=== PATIENT | male | born 1995 | race Caucasian/White ===

== ENCOUNTER 2022-10-05 05:07 | Observation (INO) | payer OTHER ==
[2022-10-05] MEDS ORDERED: fentaNYL 50 MCG/ML SDV IVPUSH ONE ×2 (05:13→06:46)
[2022-10-05 05:36] LABS: BASOPHILS ABSOLUTE AUTO 0.1 K/uL (0.0-0.1); BASOPHILS PERCENT AUTO 0.9 % (0.0-1.5); BLOOD UREA NITROGEN,BUN 8 mg/dL (7.0-18.0); CARBON DIOXIDE,CO2 27.8 mmol/L (21.0-32.0); CHLORIDE,CL 102 mmol/L (98-107); CREATININE 1.1 mg/dL (0.8-1.3); EOSINOPHILS ABSOLUTE AUTO 0.1 K/uL (0.0-0.7); EOSINOPHILS PERCENT AUTO 0.8 % (0.0-7.0); GLUCOSE RANDOM 119 mg/dL (74-106); HEMATOCRIT 47.2 % (38.0-50.0); HEMOGLOBIN 16.7 g/dL (13.0-17.0); LYMPHOCYTES ABSOLUTE AUTO 2.2 K/uL (0.6-2.4); LYMPHOCYTES PERCENT AUTO 28.3 % (16.0-40.0); MEAN CORPUSCULAR HEMOGLOBIN 32.5 pg (27.0-32.0); MEAN CORPUSCULAR HGB CONC 35.4 g/dL (31.0-37.0); MEAN CORPUSCULAR VOLUME 91.8 fL (80.0-98.0); MONOCYTES ABSOLUTE AUTO 0.5 K/uL (0.0-0.8); MONOCYTES PERCENT AUTO 6.8 % (0.0-15.0); NEUTROPHILS ABSOLUTE AUTO 4.9 K/uL (1.4-5.7); NEUTROPHILS PERCENT AUTO 63.2 % (48.0-80.0); NRBC ABSOLUTE 0 K/uL; PLATELET COUNT,PLT 324 K/uL (150-400); POTASSIUM,K 3.7 mmol/L (3.5-5.1); RED BLOOD CELL COUNT 5.14 M/uL (4.50-5.90); SODIUM,NA 142 mmol/L (136-148)
[2022-10-05 05:37] LABS: CALCIUM 8.2 mg/dL (8.5-10.1); ESTIMATED GFR 94 mL/min (>60); ETHANOL BLOOD MEDICAL 260 mg/dL
[2022-10-05] MEDS ORDERED: Morphine 4 MG/ML Syringe IVPUSH ONE (06:39)
[2022-10-05] MEDS ORDERED: Ondansetron 4 MG/2 ML SDV IVPUSH PRN (08:19)
[2022-10-05] MEDS: Morphine 2 MG/ML SYRINGE IVPUSH PRN ×4 (08:34→16:41)
[2022-10-05] MEDS: Sodium Chloride 0.9% 1,000 ML IV SCH ×2 (09:10→17:33)
[2022-10-05] MEDS: Acetaminophen 1,000 MG in Premix Bag 1 BAG IV PRN ×2 (09:11→17:33)
[2022-10-06] MEDS: Sodium Chloride 0.9% 1,000 ML IV SCH ×3 (01:19→17:17)
[2022-10-06] MEDS: Acetaminophen 1,000 MG in Premix Bag 1 BAG IV PRN (04:38)
[2022-10-06] MEDS: Acetaminophen/HYDROcodone 325-5 MG Tab PO PRN ×2 (12:33→17:23)
[2022-10-07] MEDS: Acetaminophen/HYDROcodone 325-5 MG Tab PO PRN ×3 (00:22→09:44)
[2022-10-07] MEDS: Sodium Chloride 0.9% 1,000 ML IV SCH ×2 (00:24→08:36)
== END 2022-10-07 12:50 | disposition home or self-care (01) ==
LOC: MW.ED 05:07 → MW.MS 08:26
PROVIDERS: ADMIT Surgery; ATTEND Surgery
DX: S42.002A Fracture of unspecified part of left clavicle, initial encounter for closed fracture (principal); S22.42XA Multiple fractures of ribs, left side, initial encounter for closed fracture; S27.0XXA Traumatic pneumothorax, initial encounter; S27.322A Contusion of lung, bilateral, initial encounter; Z87.891 Personal history of nicotine dependence; V29.99XA Rider (driver) (passenger) of other motorcycle injured in unspecified traffic accident, initial encounter
CPT/HCPCS: 36415; 70450; 71046; 71260; 72125; 73130; 74177; 80048; 80307; 85025; 96361; 96365; 96375; 96376; 99285; A9270; G0378; J0131; J2270; J3010; J7030; 96374

== ENCOUNTER 2022-10-08 08:03 | Day surgery (SDC) | payer OTHER ==
[~2022-10-08 08:03] MED LIST: Lactated Ringers 1,000 ML IV SCH; ceFAZolin 2 GM in Sodium Chloride 0.9% 50 ML IV ONE
[2022-10-08] MEDS ORDERED: Dexmedetomidine 200 MCG/2 ML SDV IV ONE (08:04)
[2022-10-08] MEDS ORDERED: Albuterol 0.083% 2.5 MG/3 ML Neb Soln NEB PRN (08:50)
[2022-10-08] MEDS ORDERED: droPERidol 5 MG/2 ML SDV IVPUSH PRN (08:50)
[2022-10-08] MEDS ORDERED: Morphine 2 MG/ML SYRINGE IVPUSH PRN (08:50)
[2022-10-08] MEDS ORDERED: Metoclopramide 10 MG/2 ML SDV IVPUSH PRN (08:50)
[2022-10-08] MEDS ORDERED: Ondansetron 4 MG/2 ML SDV IVPUSH PRN (08:50)
[2022-10-08] MEDS ORDERED: HYDROmorphone 1 MG/ML Syringe IVPUSH PRN (08:50)
[2022-10-08] MEDS ORDERED: Naloxone 0.4 MG/ML SDV IVPUSH PRN (08:50)
[2022-10-08] MEDS ORDERED: fentaNYL 50 MCG/ML SDV IVPUSH PRN (08:50)
[2022-10-08] MEDS ORDERED: propofoL 50 ML ONE (09:27)
[2022-10-08] MEDS ORDERED: Propofol 200 MG/20 ML SDV ONE ×4 (09:28→12:16)
[2022-10-08] MEDS ORDERED: fentaNYL 250 MCG/5 ML SDV ONE (09:28)
[2022-10-08] MEDS ORDERED: Lidocaine 2% 5 ML SDV ONE (09:33)
[2022-10-08] MEDS ORDERED: Midazolam 1 MG/ML 2 ML SDV ONE (09:33)
[2022-10-08] MEDS ORDERED: Ropivacaine 0.5% 5 MG/ML 30 ML SDV ONE (10:07)
[2022-10-08] MEDS ORDERED: Bupivacaine 0.25% 10 ML SDV ONE ×2 (10:14→10:15)
[2022-10-08] MEDS ORDERED: Water For Injection, Sterile 20 ML ONE (10:58)
[2022-10-08] MEDS ORDERED: ceFAZolin 2 GM Vial ONE (10:58)
[2022-10-08] MEDS ORDERED: Ondansetron 4 MG/2 ML SDV ONE (12:26)
[2022-10-08] MEDS ORDERED: Ketorolac 30 MG/ML SDV ONE (12:26)
[2022-10-08] MEDS ORDERED: HYDROmorphone 2 MG/ML Syringe ONE (12:38)
== END 2022-10-08 14:35 | disposition home or self-care (01) ==
LOC: MW.SDS 08:03
PROVIDERS: ATTEND Orthopaedic Surgery
DX: S42.032A Displaced fracture of lateral end of left clavicle, initial encounter for closed fracture (principal); J93.9 Pneumothorax, unspecified; Z87.891 Personal history of nicotine dependence; Z79.899 Other long term (current) drug therapy
CPT/HCPCS: 23515; 64415; 71045; J0690; J1170; J1885; J2250; J2405; J2704; J2795; J3010; J3490; J7120